=== PATIENT | female | born 1955 | race Caucasian/White ===

== ENCOUNTER 2020-12-19 05:36 | Observation (INO) | payer MEDICARE ==
[2020-12-19] VITALS (8 sets, daily range): BP systolic 105–128; BP diastolic 61–88
[~2020-12-19] VITALS: Ht 157.5 cm; Wt 90.7 kg
[~2020-12-19 05:36] MED LIST: ATORVASTATIN CA20 MG PO; CALCIUM PO; EVISTA60 MG PO; LOTREL 10-20 M1 EACH PO; MELOXICAM7.5 MG PO; MULTI-VITAMIN1 EACH PO; PANTOPRAZOLE SO40 MG PO; SERTRALINE HCL100 MG PO
[2020-12-19] MEDS ORDERED: CELECOXIB 200 MG CAP ONE (06:07)
[2020-12-19] MEDS ORDERED: DEXAMETHASONE SOD PHOS 10 MG/1 ML VIAL ONE (06:07)
[2020-12-19] MEDS ORDERED: GABAPENTIN 300 MG CAP ONE (06:07)
[2020-12-19] MEDS ORDERED: CEFAZOLIN SOD 1 GM/NS 50ML 100 ML IV ONE (06:08)
[2020-12-19] MEDS ORDERED: TRANEXAMIC ACID 1,000 MG/10 ML ML ONE (06:39)
[2020-12-19] MEDS ORDERED: VANCOMYCIN HCL 1,000 MG ONE (06:39)
[2020-12-19] MEDS ORDERED: SODIUM CHLORIDE 0.9% 500ML 500 ML ONE (06:40)
[2020-12-19] MEDS ORDERED: ROPIVACAINE 246.25 MG, EPINEPHRINE HCL 1:1000 1ML 0.5 MG, CLONIDINE HCL 0.08 MG, KETORO... INJ ONE ×5 (08:00)
[2020-12-19] MEDS ORDERED: HYDROCODONE/APAP 5MG-325MG TAB PO PRN (09:00)
[2020-12-19] MEDS ORDERED: ACETAMINOPHEN 650 MG SUPP PR PRN (09:00)
[2020-12-19] MEDS ORDERED: KETOROLAC TROMETHAMINE 30 MG/ML VIAL IV PRN (09:00)
[2020-12-19] MEDS ORDERED: ZOLPIDEM TARTRATE 5 MG TAB PO PRN (09:00)
[2020-12-19] MEDS ORDERED: DOCUSATE SODIUM 100 MG CAP PO PRN (09:00)
[2020-12-19] MEDS ORDERED: DIPHENHYDRAMINE HCL INJ 50 MG/ML VIAL IV PRN (09:00)
[2020-12-19] MEDS: ASPIRIN 325 MG TAB PO SCH ×2 (11:30→17:00)
[2020-12-19] MEDS ORDERED: SEVOFLURANE INHAL SOLN 250 ML PEN BTL ONE (11:48)
[2020-12-19] MEDS ORDERED: POVIDONE IODINE 0.05% 0.05 % ML PO ONE (11:48)
[2020-12-19] MEDS ORDERED: PROPOFOL IV EMULSION 10 MG/ML 20 ML VIAL ONE (11:48)
[2020-12-19] MEDS ORDERED: GLYCOPYRROLATE INJ 0.2 MG/ML VIAL ONE (11:48)
[2020-12-19] MEDS ORDERED: LIDOCAINE HCL 2% LOCAL INJ 5 ML SDV VIAL INJ ONE (11:48)
[2020-12-19] MEDS ORDERED: DEXAMETHASONE SOD PHOS INJ 4 MG/ML VIAL ONE (11:48)
[2020-12-19] MEDS ORDERED: ONDANSETRON HCL INJ 2MG/ML 2ML 2 MG/ML VIAL ONE (11:48)
[2020-12-19] MEDS ORDERED: ROPIVACAINE 0.5% 5 MG/ML 30 ML SDV ONE (12:27)
[2020-12-19] MEDS ORDERED: LIDOCAINE 2%/ EPINEPHRINE 20ML MDV ONE (12:27)
[2020-12-19] MEDS: ONDANSETRON HCL INJ 2MG/ML 2ML 2 MG/ML VIAL IV PRN (15:54)
[2020-12-19] MEDS ORDERED: SODIUM CHLORIDE 0.9% 250ML 250 ML ONE (17:00)
[2020-12-19] MEDS: CEFAZOLIN SOD 1 GM/NS 50ML 50 ML IV SCH (17:00)
[2020-12-19] MEDS: CELECOXIB 200 MG CAP PO SCH (17:00)
[2020-12-19] MEDS ORDERED: ATORVASTATIN 20 MG TAB PO SCH (21:00)
[2020-12-19] MEDS ORDERED: SERTRALINE HCL 100 MG TAB PO SCH (21:00)
[2020-12-19] MEDS ORDERED: PANTOPRAZOLE SOD 40 MG TABEC PO SCH (22:28)
[2020-12-20] MEDS: CEFAZOLIN SOD 1 GM/NS 50ML 50 ML IV SCH ×2 (00:01→08:23)
[2020-12-20] MEDS: HYDROCODONE/APAP 7.5MG-325MG 1 EA TAB PO PRN ×3 (05:00→09:15)
[2020-12-20 05:46] LABS: HEMATOCRIT 36.3 % (34.2-44.1); HEMOGLOBIN 11.4 g/dL (12.0-16.0)
[2020-12-20 05:50] VITALS: BP 141/77
[2020-12-20] MEDS: ONDANSETRON HCL INJ 2MG/ML 2ML 2 MG/ML VIAL IV PRN (06:20)
[2020-12-20] MEDS ORDERED: PANTOPRAZOLE SOD 40 MG TABEC PO SCH (07:30)
[2020-12-20 08:11] VITALS: BP 130/69
[2020-12-20] MEDS: ASPIRIN 325 MG TAB PO SCH (08:23)
[2020-12-20] MEDS: CELECOXIB 200 MG CAP PO SCH (08:23)
[2020-12-20] MEDS ORDERED: RALOXIFENE HCL 60 MG TAB PO SCH (09:00)
[2020-12-20] MEDS ORDERED: ACETAMINOPHEN 1000 MG/100 ML IV PRN (09:00)
[2020-12-20] MEDS ORDERED: MELOXICAM 7.5 MG TAB PO SCH (09:00)
[2020-12-20] MEDS ORDERED: MULTIVITAMINS/MINERALS TAB PO SCH (09:00)
[2020-12-20] MEDS ORDERED: [UNRECOGNIZED DRUG - OTHER] PO SCH (09:00)
[2020-12-20] MEDS ORDERED: AMLODIPINE BESYLATE PO SCH (09:00)
[2020-12-20] MEDS ORDERED: BENAZEPRIL PO SCH (09:00)
[2020-12-20] MEDS ORDERED: BENAZEPRIL HCL 10 MG TAB PO SCH (09:00)
[2020-12-20] MEDS ORDERED: AMLODIPINE BESYLATE 10 MG TAB PO SCH (09:00)
[2020-12-20 09:01] VITALS: BP 130/69
== END 2020-12-20 11:30 | disposition home health service (06) ==
LOC: OR 05:36 → PACU V 08:56 → MED/SURG 10:33
PROVIDERS: ADMIT Specialist; ATTEND Specialist
DX: M17.11 Unilateral primary osteoarthritis, right knee (principal); I10 Essential (primary) hypertension; Z88.5 Allergy status to narcotic agent; Z91.018 Allergy to other foods; K21.9 Gastro-esophageal reflux disease without esophagitis; F32.9 Major depressive disorder, single episode, unspecified; Z01.812 Encounter for preprocedural laboratory examination; Z01.818 Encounter for other preprocedural examination; Z20.822 Contact with and (suspected) exposure to COVID-19
CPT/HCPCS: 27447; 36415; 71046; 73560; 85014; 85018; 86850; 86900; 86920; 97110; 97116; 97139; 97161; 97530 ×2; G0378 ×2; J0171; J0690 ×2; J1100; J1885; J2405 ×2; J2795; J3370; J7040; J7050; S0164; U0002; J2001

== ENCOUNTER 2021-03-20 05:26 | Observation (INO) | payer MEDICARE ==
[2021-03-17 10:38] LABS: BASOPHILS # (AUTO) 0.1 (0.0-0.1); BASOPHILS % 0.9 % (0.0-1.0); EOSINOPHILS # (AUTO) 0.2 (0.0-0.4); HEMOGLOBIN 12.3 g/dL (12.0-16.0); LYMPHOCYTES # (AUTO) 2.7 (1.0-3.2); LYMPHOCYTES % 29.8 % (18.0-39.1); MEAN CORPUSCULAR HGB CONC 30.8 g/dL (31-35); MEAN CORPUSCULAR VOLUME 87.9 fL (81-99); MONOCYTES # (AUTO) 0.8 (0.2-0.8); MONOCYTES % 8.5 % (4.4-11.3); NEUTROPHILS # (AUTO) 5.2 (2.1-6.9); NEUTROPHILS % 58.2 % (38.7-80.0); PLATELET COUNT 232 x10e3/uL (140-360); RED BLOOD COUNT 4.55 x10e6/uL (3.6-5.1); RED CELL DISTRIBUTION WIDTH 15.3 % (11.7-14.4)
[~2021-03-20] VITALS: Ht 157.5 cm; Wt 90.3 kg
[2021-03-20] MEDS ORDERED: GABAPENTIN 300 MG CAP ONE (06:05)
[2021-03-20] MEDS ORDERED: CELECOXIB 200 MG CAP ONE (06:05)
[2021-03-20] MEDS ORDERED: DEXAMETHASONE SOD PHOS 10 MG/1 ML VIAL ONE (06:05)
[2021-03-20] MEDS ORDERED: SODIUM CHLORIDE 0.9% 50ML 100 ML ONE (06:06)
[2021-03-20] MEDS ORDERED: Vancomycin IV 1,000 MG ONE (06:35)
[2021-03-20] MEDS ORDERED: TRANEXAMIC ACID 1,000 MG/10 ML ML ONE (06:35)
[2021-03-20] MEDS ORDERED: SODIUM CHLORIDE 0.9% 500ML 500 ML ONE (06:35)
[2021-03-20] MEDS ORDERED: ROPIVACAINE 246.25 MG, EPINEPHRINE HCL 1:1000 1ML 0.5 MG, CLONIDINE HCL 0.08 MG, KETORO... INJ ONE ×5 (07:30)
[2021-03-20] MEDS ORDERED: HYDROCODONE/APAP 5MG-325MG TAB PO PRN (08:15)
[2021-03-20] MEDS ORDERED: DIPHENHYDRAMINE HCL INJ 50 MG/ML VIAL IV PRN (08:15)
[2021-03-20] MEDS ORDERED: ZOLPIDEM TARTRATE 5 MG TAB PO PRN (08:15)
[2021-03-20] MEDS ORDERED: ONDANSETRON HCL INJ 2MG/ML 2ML 2 MG/ML VIAL IV PRN (08:15)
[2021-03-20] MEDS ORDERED: DOCUSATE SODIUM 100 MG CAP PO PRN (08:15)
[2021-03-20] MEDS ORDERED: KETOROLAC TROMETHAMINE 30 MG/ML VIAL IV PRN (08:15)
[2021-03-20] MEDS ORDERED: ACETAMINOPHEN 650 MG SUPP PR PRN (08:15)
[2021-03-20] MEDS ORDERED: HYDROMORPHONE 1MG/1ML INJ ONE (08:32)
[2021-03-20] MEDS ORDERED: FENTANYL CITRATE/PF 100MCG/2 ML INJ ONE ×2 (09:01→12:19)
[2021-03-20 09:52] VITALS: BP 133/75
[2021-03-20 10:08] VITALS: BP 133/75
[2021-03-20 10:31] VITALS: BP 133/75
[2021-03-20] MEDS: HYDROCODONE/APAP 7.5MG-325MG 1 EA TAB PO PRN ×2 (11:33→21:04)
[2021-03-20] MEDS: ASPIRIN 325 MG TAB PO SCH ×2 (11:33→16:43)
[2021-03-20] MEDS: SODIUM CHLORIDE 0.9% 1000ML 1,000 ML IV SCH ×2 (11:33→20:30)
[2021-03-20 11:49] VITALS: BP 126/72
[2021-03-20] MEDS ORDERED: MIDAZOLAM HCL 2 MG/2 ML VIAL ONE (12:19)
[2021-03-20] MEDS ORDERED: PROPOFOL IV EMULSION 10 MG/ML 20 ML VIAL ONE (13:06)
[2021-03-20] MEDS ORDERED: LIDOCAINE HCL 2% LOCAL INJ 5 ML SDV VIAL INJ ONE (13:06)
[2021-03-20] MEDS ORDERED: SEVOFLURANE INHAL SOLN 250 ML PEN BTL ONE (13:06)
[2021-03-20] MEDS ORDERED: ONDANSETRON HCL INJ 2MG/ML 2ML 2 MG/ML VIAL ONE (13:06)
[2021-03-20] MEDS ORDERED: POVIDONE IODINE 0.05% 0.05 % ML PO ONE (13:06)
[2021-03-20] MEDS ORDERED: ROPIVACAINE 0.5% 5 MG/ML 30 ML SDV ONE (13:25)
[2021-03-20 15:01] VITALS: BP 135/72
[2021-03-20] MEDS: Cefazolin 1 GM in SODIUM CHLORIDE 0.9% 50ML 50 ML IV SCH (16:42)
[2021-03-20] MEDS: CELECOXIB 200 MG CAP PO SCH (16:43)
[2021-03-20 20:00] VITALS: BP 140/76
[2021-03-20] MEDS ORDERED: ATORVASTATIN 20 MG TAB PO SCH (21:00)
[2021-03-21 00:06] VITALS: BP 137/88
[2021-03-21] MEDS: Cefazolin 1 GM in SODIUM CHLORIDE 0.9% 50ML 50 ML IV SCH ×2 (00:09→08:01)
[2021-03-21] MEDS: HYDROCODONE/APAP 7.5MG-325MG 1 EA TAB PO PRN ×3 (02:40→13:23)
[2021-03-21 04:00] VITALS: BP 144/62
[2021-03-21 06:07] LABS: HEMATOCRIT 35.9 % (34.2-44.1); HEMOGLOBIN 11.2 g/dL (12.0-16.0)
[2021-03-21] MEDS: SODIUM CHLORIDE 0.9% 1000ML 1,000 ML IV SCH (06:30)
[2021-03-21 07:30] VITALS: BP 144/62
[2021-03-21] MEDS ORDERED: PANTOPRAZOLE SOD 40 MG TABEC PO SCH (07:30)
[2021-03-21 07:47] VITALS: BP 142/66
[2021-03-21] MEDS ORDERED: ACETAMINOPHEN 1000 MG/100 ML IV PRN (08:15)
[2021-03-21] MEDS ORDERED: RALOXIFENE HCL 60 MG TAB PO SCH (09:00)
[2021-03-21] MEDS ORDERED: AMLODIPINE BESYLATE 10 MG TAB PO SCH (09:00)
[2021-03-21] MEDS ORDERED: SERTRALINE HCL 100 MG TAB PO SCH (09:00)
[2021-03-21] MEDS ORDERED: MULTIVITAMINS/MINERALS TAB PO SCH (09:00)
[2021-03-21] MEDS ORDERED: CALCIUM CARBONATE 500 MG CHEWABLE TABS PO SCH (09:00)
[2021-03-21] MEDS ORDERED: BENAZEPRIL HCL 10 MG TAB PO SCH (09:00)
[2021-03-21] MEDS: ASPIRIN 325 MG TAB PO SCH (09:44)
[2021-03-21] MEDS: CELECOXIB 200 MG CAP PO SCH (09:44)
[2021-03-21 11:37] VITALS: BP 138/87
[2021-03-21] MEDS ORDERED: ONDANSETRON HCL 4 MG ORAL DISINTEGRATING TAB PO PRN (14:00)
== END 2021-03-21 14:59 | disposition home health service (06) ==
LOC: OR 05:26 → PACU V 08:54 → MED/SURG 09:33
PROVIDERS: ADMIT Specialist; ATTEND Specialist
DX: M17.0 Bilateral primary osteoarthritis of knee (principal); D64.9 Anemia, unspecified; M25.562 Pain in left knee; E78.5 Hyperlipidemia, unspecified; F41.9 Anxiety disorder, unspecified; Z01.818 Encounter for other preprocedural examination; I10 Essential (primary) hypertension; K21.9 Gastro-esophageal reflux disease without esophagitis
CPT/HCPCS: 27447; 36415 ×2; 73560; 85014; 85018; 85025; 86850; 86900; 86920; 96360; 97116; 97162; 97530 ×2; C1713 ×4; C1776; G0378 ×2; J0171; J0690 ×2; J1100; J1170; J1885 ×2; J2001; J2250; J2405; J2704; J2795; J3010; J3370; J7030; J7040; S0164

== ENCOUNTER 2021-05-01 13:56 | Outpatient (RCR) | payer MEDICARE | END 2021-05-02 | LOC: PT 13:56 | PROVIDERS: ATTEND Specialist | DX: Z47.1 Aftercare following joint replacement surgery (principal); Z96.652 Presence of left artificial knee joint ==

== ENCOUNTER 2021-05-31 10:00 | Outpatient (RCR) | payer MEDICARE | END 2021-06-01 | LOC: PT 10:00 | PROVIDERS: ATTEND Specialist | DX: Z47.1 Aftercare following joint replacement surgery (principal); Z96.652 Presence of left artificial knee joint ==